=== PATIENT | male | born 1990 | race Hispanic/Latino ===

== ENCOUNTER 2020-11-27 15:45 | Emergency (ER) | payer OTHER ==
[2020-11-27] MEDS ORDERED: DEXAMETHASONE SOD PHOSPHATE 10MG/ML 1ML VIAL ONE (17:40)
[2020-11-27] MEDS ORDERED: TRAMADOL HCL 50 MG TABLET ONE (17:40)
== END 2020-11-27 17:58 | disposition home or self-care (01) ==
LOC: EDH 15:45
DX: G56.01 Carpal tunnel syndrome, right upper limb (principal)
CPT/HCPCS: 96372; 99283; J1100